=== PATIENT | male | born 1975 | race Caucasian/White ===

== ENCOUNTER 2020-07-26 13:46 | Emergency (ER) | payer OTHER, SELFPAY ==
[2020-07-26] VITALS (9 sets, daily range): BP systolic 139–165; BP diastolic 93–105; PULSE 61–84; RESP 14–19; TEMP 36.6; O2SAT 94–100; BMI 31.4
--- NOTE | 2020-07-26 13:51 | XR_ITS ---
WS: [id number] XR chest 1V portable 76265 REASON FOR EXAM: chest pain FINDINGS: No previous examination for comparison. Patient is status post coronary artery bypass surgery. There is mild tortuosity of the thoracic aorta . The heart is not enlarged. There is increased opacity in the left lower lung underlying the cardiac silhouette. No significant abnormality of the bony thorax. XR/XR chest 1V portable 40057 IMPRESSION: Possible left lung infiltrate of unknown chronicity. Follow-up chest x-ray is r ecommended.
--- NOTE | 2020-07-26 13:54 | ED_ITS ---
HPI - Back Pain/Injury General: Chief Complaint: Urogenital-Male Stated Complaint: CP Time Seen by Provider: 07/26/20 13:51 Source: patient Mode of arrival: ambulatory Limitations: no limitations History of Present Illness: HPI Narrative: The patient is a 44-year-old gentleman who presents to the emergency department with right lower back pain that started about 3 hours ago. He states that 5 months ago he had open heart surgery for heart attack and this is exactly how he felt at that time. He denies any nausea or vomiting. Pain is nonradiating. Pain is severe. No dizziness. He is starting to feel short of breath. He has a history of kidney stone which is remote when he said he was much younger. No fever. MD elicited complaint: back pain Timing: constant and progressively worsening Quality: sharp Radiation: none Exacerbating factors: none Relieving factors: none Associated symptoms: Deny abdominal pain, arthralgias, chills, change in bowel habits, difficulty walking, dysuria, fatigue, fecal incontinence, fever(s), hematuria, myalgias, nausea, numbness, syncope, tingling/numbness/burning, urinary frequency, urinary urgency, vomiting or weakness Review of Systems General: Reports: 10 or more systems reviewed and unremarkable except in HPI and below Const: Denies: fever(s), chills or fatigue Eyes: Denies: change in vision or blurry vision ENMT: Denies: throat pain, enlarged tonsils, odynophagia, hoarseness, mouth pain or swelling of lips/tongue Card: Denies: syncope Resp: Denies: dyspnea, productive cough or non-productive cough GI: Denies: abdominal pain, nausea, vomiting, fecal incontinence or change in bowel habits : Denies: dysuria, urinary urgency or hematuria Musc: Denies: neck pain, back pain or extremity swelling Skin/Breast: Denies: rash, pruritus or erythema Neuro: Denies: difficulty walking Endo: Denies: polyuria, polydipsia or tired all the time Physical Exam Const: COMMON NORMALS: no acute distress, average body habitus, patient oriented x3, no limitations, healthy appearing, alert and well nourished HENMT: COMMON NORMALS: normocephalic, atraumatic and moist oral mucous membranes HEAD & SCALP: normocephalic and atraumatic Neck/C-Spine: COMMON NORMALS: no meningeal signs and no JVD Resp: COMMON NORMALS: normal respiratory effort, No retractions, No use of accessory muscles, clear to auscultation bilaterally and percussion normal AUSCULTATION: clear to auscultation bilaterally PERCUSSION: percussion normal Cardio: COMMON NORMALS: no JVD, regular rate, regular rhythm, S1 normal heart sound present, S2 normal heart sound present, No gallops present (Cardio), No clicks present (Cardio), No murmurs present (Cardio), No rub (Cardio) and Peripheral pulses 2+ throughout RATE: regular rate RHYTHM: regular rhythm HEART SOUNDS: S1 normal heart sound present and S2 normal heart sound present PERIPHERAL PULSES: Peripheral pulses 2+ throughout GI: COMMON NORMALS: Normal to inspection, nondistended, normoactive bowel sounds present, Soft to palpation, non-tender, No hepatosplenomegaly present, no masses and no bruits PALPATION: Yes Soft to palpation and Yes No hepatosplenomegaly present Back/Pelvis: GENERAL BACK: Yes CVA tenderness CVA tenderness: right Extremity: COMMON NORMALS: normal to inspection, full ROM, capillary refill normal, no calf tenderness and no pedal edema Neuro: COMMON NORMALS: patient oriented x3 SENSORIUM/ORIENTATION: Yes alert MENINGEAL SIGNS: Yes no meningeal signs Skin: COMMON NORMALS: no rashes or lesions noted, no wounds, turgor normal, no jaundice, no petechiae and no mottling GENERAL SKIN EXAM: no rashes or lesions noted and turgor normal Course Reevaluation(s): Reevaluation #1: Patient's pain has resolved now. He is ready to go home. He would like to follow-up with a urologist narrow to home as he lives in [facility]. We will give him a disc with his images and he can follow-up with his urologist of choice. We will send him home with some pain medication and Flomax. He voiced understanding and is in agreement with the plan. Patient would like to have the COIVD test done at home and does not want us to do it here. Time: 18:25 Consultations: Consultation #1: Discussed the patient with Dr. Ruiz. Sin ce there is no sign of infection the goals of care should be pain control, either in the ED or admitted for pain control. If he is discharged the patient should be seen in the clinic tomorrow and plan for surgery on . Obtain a COVID screening test so it will be ready by . Time: 17:45 Vital Signs: Vital signs: Vital Signs Temperature 97.9 F 07/26/20 13:57 Pulse Rate 61 07/26/20 18:42 Respiratory Rate 14 07/26/20 18:42 Blood Pressure 139/93 07/26/20 18:42 Pulse Oximetry 97 07/26/20 18:42 MDM - Back Pain/Injury MDM Narrative: Medical decision making narrative: 44-year-old male who presented to the emergency department with right flank pain. He was concerned that he may be having a cardiac event as he felt the same way when he had a prior MO 5 months ago. On evaluation in the emergency department however his symptoms are consistent with an obstructing right ureteral calculus with hydronephrosis. His pain was difficult to control and required multiple doses of narcotic analgesics and ketorolac to get his pain under control. The patient opted to be followed up by urologist and is area as the patient is not from around here. He states he will follow-up with a urologist around where he he lives He was discharged home with a prescription for Flomax and pain medication. Medical Records: Attestation: I reviewed the patient's medical records. Lab Data: Attestation: I reviewed the patient's lab results. Labs: Lab Results 07/26/20 07/26/20 07/26/20 Range/Units 14:20 14:20 14:20 WBC 12.7 H (4.0-10.0) 10^3/ uL RBC 4.99 (4.1-5.3) 10^6/u L Hgb 12.9 (11.7-16.6) g/dL Hct 40.8 L (42.0-52.0) % MCV 81.8 (80-94) fL MCH 25.9 L (28.0-34.0) pg MCHC 31.6 (30.0-36.0) g/dL RDW 14.7 (12.1-15.1) % Plt Count 517 H (130-400) 10^3/c mm MPV 8.9 (7.4-10.4) fL Neut % (Auto) 76.7 % Lymph % (Auto) 16.3 % [place] % (Auto) 5.6 % Eos % (Auto) 0.8 % Baso % (Auto) 0.4 % Neut # (Auto) 9.76 H (1.8-7.7) 10^3/u L Lymph # (Auto) 2.1 (0.8-4.8) 10^3/u L [place] # (Auto) 0.7 (0.2-0.9) 10^3/u L Eos # (Auto) 0.1 (0.0-0.8) 10^3/u L Baso # (Auto) 0.1 (0.0-0.1) 10^3/u L Nucleated RBC % (a uto) 0 % Nucleated RBCs # 0.0 /100WBC PT 12.80 (12.1-14.9) SECO NDS INR 0.94 (0.8-1.2) D-Dimer 1.46 H (0-0.59) ug/mIFE U Sodium 141 (136-145) mmol/L Potassium 3.9 (3.5-5.1) mmol/L Chloride 101 (98-107) mmol/L Carbon Dioxide 27 (22-29) mmol/L Anion Gap 16.9 (5-19) BUN 13 (6-20) mg/dL Creatinine 0.8 (0.7-1.2) mg/dL GFR Calculation 106.0 (90-130) mL/min Glucose 118 H (65-115) mg/dL Calculated Osmolal ity 293 (285-295) mOsm/k g Calcium 9.7 (8.5-10.5) mg/dL Total Bilirubin 0.4 (0.15-1.2) mg/dL AST 22 (0-40) U/L ALT 28 (0-41) U/L Alkaline Phosphata se 120 (40-130) IU/L Troponin T Baselin e (0-15) ng/L Troponin T 120 Min clare (0-15) ng/L Delta Troponin T (0-10) ABS# NT-Pro-B Natriuret Pep 18 (0-125) pg/mL Total Protein 7.2 (6.6-8.7) g/dL Albumin 4.4 (3.5-5.2) g/dL Globulin 2.8 (1.3-4.6) g/dL Lipase 22 (13-60) U/L Urine Color (Yellow) Urine Appearance (CLEAR) Urine pH (5-7) Ur Specific Gravit y (1.005-1.030) Urine Protein (Negative) Urine Glucose (UA) (Normal) Urine Ketones (Negative) Urine Blood (Negative) Urine Nitrate (Negative) Urine Bilirubin (Negative) Urine Urobilinogen (Negative) mg/dL Ur Leukocyte Sofia ase (Negative) Urine RBC (0-2) /hpf Urine WBC (0-5) /hpf Ur Squamous Epith Cells (0-5) /hpf Amorphous Sediment Urine Bacteria (NONE) /hpf 07/26/20 07/26/20 07/26/20 Range/Units 14:20 16:40 17:10 WBC (4.0-10.0) 10^3/ uL RBC (4.1-5.3) 10^6/u L Hgb (11.7-16.6) g/dL Hct (42.0-52.0) % MCV (80-94) fL MCH (28.0-34.0) pg MCHC (30.0-36.0) g/dL RDW (12.1-15.1) % Plt Count (130-400) 10^3/c mm MPV (7.4-10.4) fL Neut % (Auto) % Lymph % (Auto) % [place] % (Auto) % Eos % (Auto) % Baso % (Auto) % Neut # (Auto) (1.8-7.7) 10^3/u L Lymph # (Auto) (0.8-4.8) 10^3/u L [place] # (Auto) (0.2-0.9) 10^3/u L Eos # (Auto) (0.0-0.8) 10^3/u L Baso # (Auto) (0.0-0.1) 10^3/u L Nucleated RBC % (a uto) % Nucleated RBCs # /100WBC PT (12.1-14.9) SECO NDS INR (0.8-1.2) D-Dimer (0-0.59) ug/mIFE U Sodium (136-145) mmol/L Potassium (3.5-5.1) mmol/L Chloride (98-107) mmol/L Carbon Dioxide (22-29) mmol/L Anion Gap (5-19) BUN (6-20) mg/dL Creatinine (0.7-1.2) mg/dL GFR Calculation (90-130) mL/min Glucose (65-115) mg/dL Calculated Osmolal ity (285-295) mOsm/k g Calcium (8.5-10.5) mg/dL Total Bilirubin (0.15-1.2) mg/dL AST (0-40) U/L ALT (0-41) U/L Alkaline Phosphata se (40-130) IU/L Troponin T Baselin e 6 (0-15) ng/L Troponin T 120 Min clare 6.00 (0-15) ng/L Delta Troponin T 0 (0-10) ABS# NT-Pro-B Natriuret Pep (0-125) pg/mL Total Protein (6.6-8.7) g/dL Albumin (3.5-5.2) g/dL Globulin (1.3-4.6) g/dL Lipase (13-60) U/L Urine Color Yellow (Yellow) Urine Appearance Clear (CLEAR) Urine pH 7 (5-7) Ur Specific Gravit y 1.010 (1.005-1.030) Urine Protein Neg (Negative) Urine Glucose (UA) Norm (Normal) Urine Ketones Negative (Negative) Urine Blood 3+ H (Negative) Urine Nitrate Negative (Negative) Urine Bilirubin Neg (Negative) Urine Urobilinogen Norm (Negative) mg/dL Ur Leukocyte Sofia ase Negative (Negative) Urine RBC >100 H (0-2) /hpf Urine WBC None (0-5) /hpf Ur Squamous Epith Cells None (0-5) /hpf Amorphous Sediment Not Reportable Urine Bacteria Trace (NONE) /hpf Imaging Data^: CXR: Attestation: I personally reviewed and interpreted this imaging study as follows: Radiologist's impression: [address] [address] XRay Report Signed Patient: Meagan Riddle #: [id number] : 1975Acct#:[id number] Age/Sex: 44 / MADM Date: 07/26/20 Loc: ERRoom/Bed: Attending Dr: Ordering Provider/Ordering MD: Rahul Cueva MD, [facility] Date of Service: 07/26/20 Procedure(s): XR chest 1V portable [id number] Accession Number(s): [id number] Report Number: [id number] WS: [id number] XR chest 1V portable [id number] REASON FOR EXAM: chest pain FINDINGS: No previous examination for comparison. Patient is status post coronary artery bypass surgery. There is mild tortuosity of the thoracic aorta. The heart is not enlarged. There is increased opacity in the left lower lung underlying the cardiac silhouette. No significant abnormality of the bony thorax. XR/XR chest 1V portable [id number] IMPRESSION: Possible left lung infiltrate of unknown chronicity. Follow-up chest x-ray is recommended. Dictated By:Marcos Reyna Jr, MD Signed By:Marcos Reyna Jr MDSigned Date/Time:07/26/201444 DD/ 41 CT Abd/Pel: Attestation: I personally reviewed and interpreted this imaging study as follows: Radiologist's impression: [place] [address] CT Scan Report Signed Patient: Meagan Riddle #: [id number] : 1975Acct#:[id number] Age/Sex: 44 / MADM Date: 07/26/20 Loc: ERRoom/Bed: Attending Dr: Ordering Provider/Ordering MD: Rahul Cueva MD, [facility] Date of Service: 07/26/20 Procedure(s): CT angio chest w abd pel w con Accession Number(s): [id number] Report Number: [id number] WS: [id number] CT angio chest w abd pel w con REASON FOR EXAM: chest pain TECHNIQUE: Coronal and sagittal 2-D and MIP reformations. IV CONTRAST ADMINISTERED: 95 mL of Omnipaque 350. TOTAL EXAM DLP: 1676.[address] scans at [facility] use at least one of these dose optimization techniques: automated exposure control; mA and/or kV adjustment per patient size (includes targeted exams where dose is matched to clinical indication); or iterative reconstruction. FINDINGS: CHEST: Status post sternotomy and coronary artery bypass surgery. Mild four-chamber cardiac enlargement. Normal thoracic aorta. No pulmonary emboli. No significant hilar adenopathy or mediastinal adenopathy. No infiltrate, lung mass, or lung nodule. No pleural effusion. The thoracic spine is unremarkable. ABDOMEN: Liver, spleen, pancreas, and gallbladder are unremarkable. The adrenal glands are within normal limits. 7 mm calculus in the left kidney. No mass or hydronephrosis in the left kidney. 6 mm calculus in the upper pole of the right kidney. No right renal mass. Moderate hydronephrosis of the right kidney secondary to 7.5 mm calculus in the proximal right ureter just distal to the ureteropelvic junction. No mass or adenopathy. No free fluid or focal fluid collection. Abdominal aorta and major visceral branches are unremarkable. The lumbar spine is without significant abnormality. PELVIS: No mass or adenopathy. No free fluid or focal fluid collection. CT/CT angio chest w abd pel w con IMPRESSION: No pulmonary emboli. No acute lung abnormality. Renal calculi as above. Right obstructive nephropathy secondary to 7 mm calculus as above. Dictated By:Marcos Reyna Jr, MD Signed By:Marcos Reyna Jr MDSigned Date/Time:07/26/207 DD/ EKG Data^: EKG 1: Attestation: I personally reviewed and interpreted this EKG as follows: EKG interpretation date: 07/26/20 Prior EKG tracings: not available for review Interpretation: Normal sinus rhythm. Heart rate 63 bpm T wave inversion in lead III and aVF. EKG 2: Attestation: I personally reviewed and interpreted this EKG as follows: EKG interpretation date: 07/26/20 EKG interpretation time: 17:11 Prior EKG tracings: available for review Interpretation: Sinus bradycardia. Heart rate 59 bpm. No significant change from earlier today. Discharge Plan Discharge Patient Disposition: Home Clinical Impression: Hydronephrosis with renal and ureteral calculus obstruction Condition: Stable Prescriptions: New oxycodone-acetaminophen 10-325 mg tablet 1 tab PO Q8H PRN (Reason: kidney stone) Qty: 20 RF: 0 Flomax 0.4 mg capsule 0.4 mg PO DAILY Qty: 30 RF: 0 Continued multivitamin Tablet 1 tab PO DAILY RF: 0 atorvastatin 80 mg tablet 80 mg PO DAILY RF: 0 aspirin 325 mg Tablet 325 mg PO DAILY RF: 0 carvedilol 3.125 mg tablet 3.125 mg PO BID RF: 0 lisinopril 5 mg tablet 5 mg PO DAILY RF: 0 Repatha SureClick 140 mg/mL pen injector See Rx Instructions .ROUTE .COMPLEX RF: 0 Discharge Orders: Discharge Order (Routine); Ordered 07/26/20 Ordered By: Rahul Cueva Discharge Diet: Usual diet Discharge Activity: Increase activity as tolerated Patient Instructions: Kidney Stones (ED), Hydronephrosis (ED) Activity Restrictions/Additional Instructions: Return for any new or worsening symptoms. Follow-up with your primary care provider within 3 days. Follow-up with the urologist as soon as you can as he will most likely need surgery to remove the stone. Take the pain medication as needed. Drink plenty of water to keep well-hydrated. 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
[2020-07-26] MEDS: ondansetron 2 mg/ML SDV 2 mL 4 MG IVP (14:05)
[2020-07-26] MEDS: morphine 4 mg/mL SDV 1 mL IVP (14:06)
[2020-07-26 14:32] LABS: Basophils # 0.1 10^3/uL (0.0-0.1); Basophils % 0.4 %; Eosinophils # 0.1 10^3/uL (0.0-0.8); Eosinophils % 0.8 %; Hematocrit 40.8 % (42.0-52.0); Hemoglobin 12.9 g/dL (11.7-16.6); Lymphocytes # 2.1 10^3/uL (0.8-4.8); Lymphocytes % 16.3 %; Mean Corpuscular HGB Conc 31.6 g/dL (30.0-36.0); Mean Corpuscular Hemoglobin 25.9 pg (28.0-34.0); Mean Corpuscular Volume 81.8 fL (80-94); Mean Platelet Volume 8.9 fL (7.4-10.4); Monocytes # 0.7 10^3/uL (0.2-0.9); Monocytes % 5.6 %; Neutrophils # 9.76 10^3/uL (1.8-7.7); Neutrophils % 76.7 %; Nucleated Red Blood Cells % 0 %; Platelet Count 517 10^3/cmm (130-400); Red Blood Count 4.99 10^6/uL (4.1-5.3); Red Cell Distribution Width 14.7 % (12.1-15.1); White Blood Count 12.7 10^3/uL (4.0-10.0)
[2020-07-26] MEDS: HYDROmorphone 1 mg/mL INJ 1 mL IVP ×2 (14:36→16:20)
[2020-07-26 14:54] LABS: INR 0.94 (0.8-1.2)
[2020-07-26 14:57] LABS: D Dimer 1.46 ug/mIFEU (0-0.59)
[2020-07-26 15:02] LABS: Troponin(5th) Baseline 6 ng/L (0-15)
[2020-07-26 15:10] LABS: Alanine Aminotransferase 28 U/L (0-41); Albumin Level 4.4 g/dL (3.5-5.2); Alkaline Phosphatase 120 IU/L (40-130); Anion Gap 16.9 (5-19); Aspartate Amino Transferase 22 U/L (0-40); Blood Urea Nitrogen 13 mg/dL (6-20); Calcium 9.7 mg/dL (8.5-10.5); Carbon Dioxide 27 mmol/L (22-29); Chloride 101 mmol/L (98-107); Globulin 2.8 g/dL (1.3-4.6); Glucose 118 mg/dL (65-115); Lipase 22 U/L (13-60); NT Pro B Type Natriuretic Pept 18 pg/mL (0-125); Osmolality Calculated 293 mOsm/kg (285-295); Potassium 3.9 mmol/L (3.5-5.1); Sodium 141 mmol/L (136-145); Total Bilirubin 0.4 mg/dL (0.15-1.2); Total Protein 7.2 g/dL (6.6-8.7)
--- NOTE | 2020-07-26 15:26 | CT_ITS ---
WS: [id number] CT angio chest w abd pel w con REASON FOR EXAM: chest pain TECHNIQUE: Coronal and sagittal 2-D and MIP reformations. IV CONTRAST ADMINISTERED: 95 mL of Omnipaque 350. TOTAL EXAM DLP: 1676.[address] scans at [facility] use at least one of these dose optimization techniques: automat ed exposure control; mA and/or kV adjustment per patient size (includes targeted exams where dose is matched to clinical indication); or iterative reconstruction. FINDINGS: CHEST: Status post sternotomy and coronary artery bypass surgery. Mild four-chamber cardiac enlargement. Normal thoracic aorta. No pulmonary emboli. No significant hilar adenopathy or mediastinal adenopathy. No infiltrate, lung mass, or lung nodule. No pleural effusion. The thoracic spine is unremarkable. ABDOMEN: Liver, spleen, pancreas, and gallbladder are unremarkable. The adrenal glands are within normal limits. 7 mm calculus in the left kidney. No mass or hydronephrosis in the left kidney. 6 mm calculus in the upper pole of the right kidney. No right renal mass. Moderate hydronephrosis of the right kidney secondary to 7.5 mm calculus in the proximal right ureter just distal to the uretero pelvic junction. No mass or adenopathy. No free fluid or focal fluid collection. Abdominal aorta and major visceral branches are unremarkable. The lumbar spine is without significant abnormality. PELVIS: No mass or adenopathy. No free fluid or focal fluid collection. CT/CT angio chest w abd pel w con IMPRESSION: No pulmonary emboli. No acute lung abnormality. Renal calculi as above. Right obstructive nephropathy secondary to 7 mm calculu s as above.
--- NOTE | 2020-07-26 15:52 | ECG_ITS ---
[facility] Test Date: 2020-07-26 Pat Name: Juma Riddle Department: Room: Gender: Male [employer]: : 1975 Requested By: Rahul Cueva I Order Number: [id number] Jolynn MD: Tanna Isaac M.D. Measurements Intervals [place] Rate: 59 P: 32 IA: 153 QRS: 50 QRSD: 89 T: 14 QT: 423 QTc: 422 Interpretive Statements SINUS BRADYCARDIA WITH MARKED SINUS ARRHYTHMIA POSSIBLE RIGHT VENTRICULAR CONDUCTION DELAY [RSR (QR) IN V1/V2] NONSPECIFIC T-WAVE ABNORMALITY No previous ECG available for comparison Electronically Signed On 07-26-2020 19:27:40 ANALYTICAL CHEMISTRY TEACHER by Tanna Isaac M.D. [email or web address]
[2020-07-26] MEDS: iohexol 350 mg/mL 100 mL Btl IV (16:03)
[2020-07-26 17:24] LABS: Add Urine Microscopic? YES; Bilirubin Urine Neg (Negative); Blood Urine 3+ (Negative); Glucose Urine UA Norm (Normal); Ketones Urine Negative (Negative); Leukocyte Esterase Urine Negative (Negative); Nitrate Urine Negative (Negative); Protein Urine Neg (Negative); Urine Appearance Clear (CLEAR); Urine Color Yellow (Yellow); Urobilinogen Urine Norm (Negative); pH Urine 7 (5-7)
[2020-07-26 17:31] LABS: Add Urine Culture? Yes; Bacteria Urine TRACE /hpf; RBC Urine >100 /hpf (0-2)
[2020-07-26] MEDS: ketorolac 30 mg/mL INJ IVP (18:09)
[2020-07-26] MEDS: oxyCODONE-APAP 10-325 mg Tablet 1 TAB PO (18:16)
[2020-07-26 18:30] LABS: Troponin 5 2HR Delta 0 ABS# (0-10)
== END 2020-07-26 18:43 | disposition home or self-care (01) ==
PROVIDERS: Emergency Provider Family Medicine
DX: N13.2 Hydronephrosis with renal and ureteral calculous obstruction (principal); I25.2 Old myocardial infarction; Z79.82 Long term (current) use of aspirin; Z95.1 Presence of aortocoronary bypass graft
CPT/HCPCS: 12345; 71045; 71275; 74177; 80053; 81001; 83690; 83880; 84484; 85025; 85378; 85610; 87086; 93005; 96374; 96375; 96376; 99283; 99284; J1170; J1885; J2270; J2405; Q9967